=== PATIENT | male | born 1995 | race Caucasian/White ===

== ENCOUNTER 2020-08-13 | Outpatient (CLI) | payer OTHER | END 2020-08-13 07:37 | disposition critical access hospital (66) | CPT/HCPCS: A0425; A0427 ==

== ENCOUNTER 2020-08-13 07:56 | Emergency (ER) | payer OTHER ==
--- NOTE | 2020-08-13 08:21 | ED Physician Documentation ---
PD HPI DYSPNEA - Stated complaint Stated Complaint: ANXIETY - Chief complaint Chief Complaint: General - History obtained from History obtained from: Patient - History of Present Illness Timing - onset: Today (he states he does drink a lot of caffeine energy drinks. He also will drink heavily on weekends. He had drank yesterday with friends. He had some extra caffeine pills and soda this morning to help wake up. He says he felt soreness in right shoulder when awoke. Enroute to work, anxiety and dyspnea.) Timing - onset during: Light activity (he was enroute to work and felt anxious/dyspnea. He says he tried to catch breath but kept breathing faster. He started to have numbness and then spasms in arms/hands and then face. Friends called EMS for concern "of a stroke". Improving enroute as Medics coached slower breathing. Pt still anxious.) Timing - duration: Minutes Timing - details: Gradual onset, Still present (though improving enroute with some coached slower breathing.) Inciting event(s): Other (less fluid intake over weekend and extra caffeine/energy drinks.). No: Out of meds, URI, Allergic rxn/anaphylaxis Improved by: No: Rest, Sitting up Associated symptoms: Chest pain / discomfort, Anxiety. No: Fever, Cough, Hemoptysis, Wheezing, Bilateral edema Similar symptoms before: Has not had sx before Recently seen: Not recently seen Review of Systems Constitutional: denies: Fever, Chills Nose: denies: Rhinorrhea / runny nose, Congestion Throat: denies: Sore throat Respiratory: reports: Dyspnea. denies: Cough, Wheezing GI: denies: Abdominal Pain, Vomiting, Diarrhea Neurologic: reports: Generalized weakness, Numbness (both arms and legs bilaterally with quicker breathing.). denies: Headache Psychiatric: denies: Depressed, Suicidal PD PAST MEDICAL HISTORY - Past Medical History Cardiovascular: None Respiratory: None Neuro: None Endocrine/Autoimmune: None - Present Medications Home Medications: Ambulatory Orders Medication Instructions Recorded Confirmed No Known Home Medications 08/13/20 08/13/20 - Allergies Allergies/Adverse Reactions: Allergies Allergy/AdvReac Type Severity Reaction Status Date / Time No Known Drug Allergies Allergy Verified 08/13/20 08:07 - Social History Does the pt smoke?: No Does the pt drink ETOH?: Yes ETOH Use: Beer (typically just on weekends) Does the pt have substance abuse?: No PD ED PE NORMAL - Vitals Vital signs reviewed: Yes - General General: Alert and oriented X 3, Well developed/nourished, Other (seems anxious) - HEENT HEENT: Pharynx benign. No: Moist mucous membranes - Neck Neck: Supple, no meningeal sign, No adenopathy - Cardiac Cardiac: RRR, No murmur, No rub - Respiratory Respiratory: No respiratory distress, Clear bilaterally - Abdomen Abdomen: Soft, Non tender - Derm Derm: Normal color, Warm and dry - Extremities Extremities: Normal ROM s pain, No edema, No calf tenderness / cord - Neuro Neuro: Alert and oriented X 3, No motor deficit, Normal speech Results - Vitals Vitals: Vital Signs - 24 hr 08/13/20 08/13/20 08/13/20 08:00 08:30 10:07 Temperature 36.7 C Heart Rate 84 87 78 Respiratory 16 19 16 Rate Blood Pressure 127/87 H 136/88 H 120/82 H O2 Saturation 99 100 99 Oxygen O2 Source Room air - EKG (time done) 09:01 Rate: Rate (enter#) (75) Rhythm: NSR [place]: Normal Intervals: Normal DE QRS: Normal Ischemia: Normal ST segments. No: ST elevation c/w ischemia, ST depression - Labs Labs: Laboratory Tests 08/13/20 08/13/20 08/13/20 08:39 08:39 08:39 WBC 10.6 RBC 4.95 Hgb 15.1 Hct 43.8 MCV 88.5 MCH 30.5 MCHC 34.5 RDW 13.2 Plt Count 210 MPV 9.9 Neut # (Auto) 7.7 H Lymph # (Auto) 1.9 [place] # (Auto) 0.8 Eos # (Auto) 0.1 Baso # (Auto) 0.0 Absolute Nucleated RBC 0.00 Nucleated RBC % 0.0 Sodium 134 L Potassium 3.5 Chloride 100 L Carbon Dioxide 26 Anion Gap 8.0 BUN 20 Creatinine 1.0 Estimated GFR (MDRD) 92 Glucose 103 H Calcium 9.5 Magnesium 1.8 Total Bilirubin 0.7 AST 22 ALT 20 Alkaline Phosphatase 67 Total Creatine Kinase 192 Troponin I High Sens 5.2 Total Protein 7.1 Albumin 4.6 Globulin 2.5 Albumin/Globulin Ratio 1.8 Lipase 27 TSH 08/13/20 08:39 WBC RBC Hgb Hct MCV MCH MCHC RDW Plt Count MPV Neut # (Auto) Lymph # (Auto) [place] # (Auto) Eos # (Auto) Baso # (Auto) Absolute Nucleated RBC Nucleated RBC % Sodium Potassium Chloride Carbon Dioxide Anion Gap BUN Creatinine Estimated GFR (MDRD) Glucose Calcium Magnesium Total Bilirubin AST ALT Alkaline Phosphatase Total Creatine Kinase Troponin I High Sens Total Protein Albumin Globulin Albumin/Globulin Ratio Lipase TSH 1.36 - Rads (name of study) chest xray Radiology: Prelim report reviewed (no acute process), See rad report PD MEDICAL DECISION MAKING - ED course Complexity details: reviewed results, re-evaluated patient (improved with Ativan. ), considered differential (very anxious. His symptoms sound like hyperventilation. Right arm pain seems muscular. No focal weakness. ), d/w patient Departure - Departure Disposition: 01 Home, Self Care Clinical Impression: Acute hyperventilation, Caffeine-induced anxiety disorder Arm pain Qualifiers: Laterality: right Qualified Code(s): M79.601 - Pain in right arm Condition: Stable Record reviewed to determine appropriate education?: Yes Instructions: ED Hyperventilation Syndrome Follow-Up: JAIMEE Leigh [Provider Group] Comments: Your symptoms sound like a hyperventilation leading to the numbness and spasming of the arms and numbness around the face. The cause of the hyperventilation is likely caffeine related associated with hydration or under hydration. I would decrease your caffeine ingestion by about half initially (if you stop and tie really you will get headaches and feel badly from that as well). Also stay well-hydrated and minimize alcohol use as that will act as a diuretic and have you under hydrate. Your EKG and blood pressure and vital signs are good here. Your basic blood tests are also good which looked at metabolic profile and blood count. No signs of heart involvement. Rest today and stay well-hydrated with less caffeine and you should be feeling better and resume normal activity tomorrow. Forms: Activity restrictions Discharge Date/Time: 08/13/20 10:14
[2020-08-13] MEDS ORDERED: SODIUM CHLORIDE 0.9% 1,000 ML IV STA (08:34)
[2020-08-13] MEDS ORDERED: LORazepam 2 MG/ML VIAL IVP STA (08:34)
[2020-08-13 08:47] LABS: BASOPHILS % (AUTO) 0.2 %; EOSINOPHILS # (AUTO) 0.1 10^3/uL (0.0-0.7); EOSINOPHILS % (AUTO) 0.5 %; HCT - HEMATOCRIT 43.8 % (42.0-52.0); HGB - HEMOGLOBIN 15.1 g/dL (14.0-18.0); LYMPHOCYTES # (AUTO) 1.9 10^3/uL (1.5-3.5); LYMPHOCYTES % (AUTO) 18.1 %; MEAN CORPUSCULAR HEMOGLOBIN 30.5 pg (27.0-31.0); MEAN CORPUSCULAR HGB CONC 34.5 g/dL (32.0-36.0); MEAN CORPUSCULAR VOLUME 88.5 fL (80.0-94.0); MEAN PLATELET VOLUME 9.9 fL (7.4-11.4); MONOCYTES # (AUTO) 0.8 10^3/uL (0.0-1.0); MONOCYTES % (AUTO) 7.9 %; NEUTROPHILS # (AUTO) 7.7 10^3/uL (1.5-6.6); NEUTROPHILS % (AUTO) 72.5 %; PLT - PLATELET COUNT 210 10^3/uL (130-450); RED BLOOD COUNT 4.95 10^6/uL (4.70-6.10); RED CELL DISTRIBUTION WIDTH 13.2 % (12.0-15.0); WHITE BLOOD COUNT 10.6 x10^3/uL (4.8-10.8)
[2020-08-13 09:02] LABS: ALBUMIN 4.6 g/dL (3.2-5.5); ALBUMIN/GLOBULIN RATIO 1.8 (1.0-2.2); BILIRUBIN,TOTAL 0.7 mg/dL (0.2-1.0); CALCIUM 9.5 mg/dL (8.5-10.3); MAGNESIUM 1.8 mg/dL (1.7-2.8); POTASSIUM 3.5 mmol/L (3.5-5.0); TOTAL PROTEIN 7.1 g/dL (6.7-8.2)
--- NOTE | 2020-08-13 09:07 | XRAY Report ---
PROCEDURE: Chest 1 View X-Ray INDICATIONS: Chest pain TECHNIQUE: One view of the chest was acquired. COMPARISON: FINDINGS: Surgical changes and devices: None. Lungs and pleura: No pleural effusions or pneumothorax. Lungs are clear. Mediastinum: Mediastinal contours appear normal. Heart size is normal. Bones and chest wall: No suspicious bony lesions. Overlying soft tissues appear unremarkable. IMPRESSION: Source of chest pain is not found. Reviewed by: Juvenal Elizondo MD on 08/13/2020 9:06 AM PDT Approved by: Juvenal Elizondo MD on 08/13/2020 9:06 AM PDT Station ID: [id number]
[2020-08-13 10:14] VITALS: BP 120/82
== END 2020-08-13 10:14 | disposition home or self-care (01) ==
LOC: ED 07:56
DX: F15.980 Other stimulant use, unspecified with stimulant-induced anxiety disorder (principal); R06.4 Hyperventilation; M79.601 Pain in right arm; R07.9 Chest pain, unspecified; R53.1 Weakness
CPT/HCPCS: 36415; 71045; 80053; 82550; 83690; 83735; 84443; 84484; 85025; 93005; 96361; 96374; 99284; J2060